=== PATIENT | female | born 1960 ===

== ENCOUNTER 2023-01-30 19:04 | Emergency (ER) | payer SELFPAY ==
[~2023-01-30] VITALS: Ht 165.1 cm; Wt 50.5 kg
[2023-01-30 19:05] VITALS: BP 152/93
== END 2023-01-30 22:12 | disposition left against medical advice (07) ==
LOC: EMS 19:12
DX: Z53.21 Procedure and treatment not carried out due to patient leaving prior to being seen by health care provider (principal)
CPT/HCPCS: 99281; Z7502